=== PATIENT | male | born 1935 | race African-American/Black ===

== ENCOUNTER 2016-12-09 03:02 | Inpatient (IN) | payer MEDICARE ==
[~2016-12-09] VITALS: Ht 180.3 cm; Wt 95.7 kg
[2016-12-09] MEDS ORDERED: LORAZEPAM 2MG/ML CPJ IV ONE (03:45)
[2016-12-09 03:57] LABS: BASOPHILS % 0.3 % (0.0-2.0); EOSINOPHILS % 0.1 % (0.0-5.0); HEMATOCRIT. 23.9 % (42.0-52.0); HEMOGLOBIN. 8.2 g/dL (14.0-18.0); LYMPHOCYTES % 22.1 % (20.0-50.0); MEAN CORPUSCULAR HEMOGLOBIN 31.3 pg (28.0-32.0); MEAN CORPUSCULAR VOLUME 91.4 fL (80.0-94.0); MONOCYTES % 7.7 % (2.0-8.0); NEUTROPHILS % 69.8 % (40.0-76.0); PLATELET 150 x1000/uL (130-400); RED BLOOD CELL COUNT 2.61 mill/uL (4.7-6.1); RED CELL DISTRIBUTION WIDTH 15.1 % (11.6-14.6)
[2016-12-09] MEDS ORDERED: SODIUM CHLORIDE 0.9% 1,000 ML IV ONE (05:46)
[2016-12-09] MEDS ORDERED: LIDOCAINE HCL 2% JELLY 5ML TOP NR (11:00)
[2016-12-09] MEDS ORDERED: FINA5TAB11 PO (11:11)
[2016-12-09] MEDS ORDERED: BENA20TA3 PO (11:11)
[2016-12-09] MEDS ORDERED: CLONIDINE 0.1MG TABLET PO PRN (11:15)
[2016-12-09] MEDS ORDERED: ONDANSETRON HCL 4MG/2ML VIAL IV PRN (11:15)
[2016-12-09] MEDS ORDERED: ACETAMINOPHEN 325MG TABLET PO PRN (11:15)
[2016-12-09] MEDS ORDERED: ROCEPHIN IVPB XX SCH (11:30)
[2016-12-09] MEDS ORDERED: SODIUM POLYSTYRENE SULFONATE 15 G/60 ML BOT PO NR (11:30)
[2016-12-09] MEDS: BENAZEPRIL 10MG TABLET PO SCH (12:53)
[2016-12-09] MEDS: FINASTERIDE 5MG TABLET PO SCH (12:53)
[2016-12-09] MEDS: CEFTRIAXONE 1 G PREMIX 50 ML IV SCH (17:53)
[2016-12-09 22:13] LABS: PHOSPHORUS 3.8 mg/dL (2.5-4.9)
[2016-12-10 05:54] LABS: CHLORIDE 107 mEq/L (98-107)
[2016-12-10 05:58] LABS: CARBON DIOXIDE 26 mEq/L (21-32)
[2016-12-10 07:12] LABS: BASOPHILS % 0.2 % (0.0-2.0); HEMATOCRIT. 22.3 % (42.0-52.0); HEMOGLOBIN. 7.8 g/dL (14.0-18.0); MEAN CORPUSCULAR HEMOGLOBIN 32.2 pg (28.0-32.0); MEAN CORPUSCULAR VOLUME 92.2 fL (80.0-94.0); MEAN PLATELET VOLUME 9.2 fl (7.4-10.4); MONOCYTES % 8.1 % (2.0-8.0); NEUTROPHILS % 77.7 % (40.0-76.0); PLATELET 125 x1000/uL (130-400); RED BLOOD CELL COUNT 2.42 mill/uL (4.7-6.1); RED CELL DISTRIBUTION WIDTH 15.3 % (11.6-14.6)
[2016-12-10] MEDS: BENAZEPRIL 10MG TABLET PO SCH (09:00)
[2016-12-10] MEDS: FINASTERIDE 5MG TABLET PO SCH (09:56)
[2016-12-10] MEDS: CEFTRIAXONE 1 G PREMIX 50 ML IV SCH (21:46)
[2016-12-11 00:39] LABS: CLARITY URINE CLEAR (CLEAR); COLOR URINE YELLOW (YELLOW); KETONES URINE NEGATIVE (NEGATIVE); LEUKOCYTE ESTERASE URINE 1+ (NEGATIVE); NITRITE URINE NEGATIVE (NEGATIVE); OCCULT BLOOD URINE 3+ (NEGATIVE); PROTEIN URINE NEGATIVE (NEGATIVE); SPECIFIC GRAVITY URINE 1.007 (1.005-1.030); UROBILINOGEN URINE 0.2 E.U./dL (0.2-1.0)
[2016-12-11] MEDS: SODIUM CHLORIDE 0.9% 1,000 ML IV SCH ×3 (02:22→23:11)
[2016-12-11 05:54] LABS: BASOPHILS % 0.4 % (0.0-2.0); EOSINOPHILS % 0.7 % (0.0-5.0); HEMATOCRIT. 27.5 % (42.0-52.0); HEMOGLOBIN. 9.4 g/dL (14.0-18.0); LYMPHOCYTES % 21.6 % (20.0-50.0); MEAN CORPUSCULAR HEMOGLOBIN 30.5 pg (28.0-32.0); MEAN CORPUSCULAR VOLUME 89.8 fL (80.0-94.0); MEAN PLATELET VOLUME 8.6 fl (7.4-10.4); MONOCYTES % 10.3 % (2.0-8.0); PLATELET 115 x1000/uL (130-400); RED BLOOD CELL COUNT 3.07 mill/uL (4.7-6.1); RED CELL DISTRIBUTION WIDTH 16.6 % (11.6-14.6)
[2016-12-11 06:30] LABS: CARBON DIOXIDE 26 mEq/L (21-32); CHLORIDE 111 mEq/L (98-107)
[2016-12-11] MEDS: BENAZEPRIL 10MG TABLET PO SCH (08:49)
[2016-12-11] MEDS: FINASTERIDE 5MG TABLET PO SCH (08:49)
[2016-12-11] MEDS ORDERED: SODIUM POLYSTYRENE SULFONATE 15 G/60 ML BOT PO SCH (12:45)
[2016-12-11] MEDS: CEFTRIAXONE 1 G PREMIX 50 ML IV SCH (13:07)
[2016-12-12 06:45] LABS: BASOPHILS % 0.5 % (0.0-2.0); EOSINOPHILS % 2.5 % (0.0-5.0); HEMATOCRIT. 25.9 % (42.0-52.0); HEMOGLOBIN. 8.6 g/dL (14.0-18.0); LYMPHOCYTES % 24.2 % (20.0-50.0); MEAN CORPUSCULAR VOLUME 90.7 fL (80.0-94.0); MEAN PLATELET VOLUME 8.7 fl (7.4-10.4); MONOCYTES % 9.6 % (2.0-8.0); NEUTROPHILS % 63.2 % (40.0-76.0); PLATELET 113 x1000/uL (130-400); RED BLOOD CELL COUNT 2.86 mill/uL (4.7-6.1); RED CELL DISTRIBUTION WIDTH 16.3 % (11.6-14.6)
[2016-12-12 07:02] LABS: CARBON DIOXIDE 25 mEq/L (21-32); CHLORIDE 113 mEq/L (98-107)
[2016-12-12] MEDS: FINASTERIDE 5MG TABLET PO SCH (08:02)
[2016-12-12] MEDS: BENAZEPRIL 10MG TABLET PO SCH (08:02)
[2016-12-12] MEDS: SODIUM CHLORIDE 0.9% 1,000 ML IV SCH (09:33)
[2016-12-12] MEDS ORDERED: MAGNESIUM 2 G PREMIX 50 ML IV SCH (12:15)
[2016-12-12] MEDS: CEFTRIAXONE 1 G PREMIX 50 ML IV SCH (15:31)
[2016-12-13 06:32] LABS: BASOPHILS % 0.5 % (0.0-2.0); EOSINOPHILS % 2.8 % (0.0-5.0); HEMATOCRIT. 26.6 % (42.0-52.0); LYMPHOCYTES % 27.2 % (20.0-50.0); MEAN CORPUSCULAR HEMOGLOBIN 30.1 pg (28.0-32.0); MEAN CORPUSCULAR VOLUME 88.8 fL (80.0-94.0); MEAN PLATELET VOLUME 8.4 fl (7.4-10.4); MONOCYTES % 9.8 % (2.0-8.0); NEUTROPHILS % 59.7 % (40.0-76.0); PLATELET 124 x1000/uL (130-400); RED CELL DISTRIBUTION WIDTH 16.5 % (11.6-14.6)
[2016-12-13 06:56] LABS: CARBON DIOXIDE 25 mEq/L (21-32); CHLORIDE 112 mEq/L (98-107)
[2016-12-13] MEDS ORDERED: DEXAMETHASONE 4MG/ML 1ML VIAL ONE (08:01)
[2016-12-13] MEDS ORDERED: PROPOFOL 200MG/20ML VIAL IV ONE (08:01)
[2016-12-13] MEDS ORDERED: CEFAZOLIN SODIUM 1000MG/VIAL ONE (08:02)
[2016-12-13] MEDS ORDERED: ONDANSETRON HCL 4MG/2ML VIAL IV PRN ×2 (08:15→08:30)
[2016-12-13] MEDS ORDERED: HYDROMORPHONE HCL/PF 2MG/ML CPJ IV PRN (08:30)
[2016-12-13] MEDS ORDERED: MEPERIDINE HCL/PF 25MG/ML CPJ IV PRN (08:30)
[2016-12-13] MEDS ORDERED: LABETALOL HCL 20MG/4ML CARPUJECT IV PRN (08:30)
[2016-12-13] MEDS ORDERED: MAGNESIUM 2 G PREMIX 50 ML IV NR (10:00)
[2016-12-13] MEDS: BENAZEPRIL 10MG TABLET PO SCH (10:58)
[2016-12-13] MEDS: HYDROCODONE/ACETAMINOPHEN 5/325MG TABLET PO PRN (10:58)
[2016-12-13] MEDS: FINASTERIDE 5MG TABLET PO SCH (10:58)
[2016-12-13] MEDS: THROAT LOZENGES-BENZOCAINE/MENTH/CETYLPYRD CL LOZENGES MM PRN ×2 (12:32→17:58)
[2016-12-13] MEDS: DEXT 5%/0.45% NACL KCL 20MEQ/L 1,000 ML IV SCH ×2 (13:51→22:02)
[2016-12-13] MEDS: CEFTRIAXONE 1 G PREMIX 50 ML IV SCH (13:51)
[2016-12-14] MEDS: FINASTERIDE 5MG TABLET PO SCH (08:13)
[2016-12-14] MEDS: DEXT 5%/0.45% NACL KCL 20MEQ/L 1,000 ML IV SCH (08:14)
[2016-12-14] MEDS: HYDROCODONE/ACETAMINOPHEN 5/325MG TABLET PO PRN (08:14)
[2016-12-14] MEDS: THROAT LOZENGES-BENZOCAINE/MENTH/CETYLPYRD CL LOZENGES MM PRN (08:15)
[2016-12-14] MEDS: BENAZEPRIL 10MG TABLET PO SCH (08:15)
[2016-12-14 11:48] LABS: BASOPHILS % 0.3 % (0.0-2.0); EOSINOPHILS % 0.1 % (0.0-5.0); HEMOGLOBIN. 9.2 g/dL (14.0-18.0); LYMPHOCYTES % 15.9 % (20.0-50.0); MEAN CORPUSCULAR HEMOGLOBIN 30.1 pg (28.0-32.0); MEAN CORPUSCULAR VOLUME 88.2 fL (80.0-94.0); MEAN PLATELET VOLUME 8.1 fl (7.4-10.4); MONOCYTES % 9.2 % (2.0-8.0); NEUTROPHILS % 74.5 % (40.0-76.0); PLATELET 129 x1000/uL (130-400); RED BLOOD CELL COUNT 3.06 mill/uL (4.7-6.1); RED CELL DISTRIBUTION WIDTH 15.7 % (11.6-14.6)
[2016-12-14 13:12] VITALS: BP 127/69
== END 2016-12-14 13:30 | disposition home or self-care (01) | DRG 668 ==
LOC: ER 03:02 → 7WST 05:49 → ENRESERV 06:57
PROVIDERS: ADMIT Hospitalist; ATTEND Hospitalist
PROC: 30233N1 Transfusion of Nonautologous Red Blood Cells into Peripheral Vein, Percutaneous Approach (ICD-10-PCS; 2016-12-10)
PROC: 0T5B8ZZ Destruction of Bladder, Via Natural or Artificial Opening Endoscopic (ICD-10-PCS; principal; 2016-12-13 07:30)
DX: N30.41 Irradiation cystitis with hematuria (principal); E43 Unspecified severe protein-calorie malnutrition; N17.9 Acute kidney failure, unspecified; D62 Acute posthemorrhagic anemia; I12.0 Hypertensive chronic kidney disease with stage 5 chronic kidney disease or end stage renal disease; N18.5 Chronic kidney disease, stage 5; N13.9 Obstructive and reflux uropathy, unspecified; R33.9 Retention of urine, unspecified; I10 Essential (primary) hypertension; E87.5 Hyperkalemia; E83.42 Hypomagnesemia; F03.90 Unspecified dementia, unspecified severity, without behavioral disturbance, psychotic disturbance, mood disturbance, and anxiety; N13.8 Other obstructive and reflux uropathy; N28.1 Cyst of kidney, acquired; N32.89 Other specified disorders of bladder; N40.1 Benign prostatic hyperplasia with lower urinary tract symptoms; R31.0 Gross hematuria; Z68.29 Body mass index [BMI] 29.0-29.9, adult; Z92.3 Personal history of irradiation; Z85.46 Personal history of malignant neoplasm of prostate
CPT/HCPCS: 36415; 76770; 80048; 80053; 81001; 81003; 83735; 83970; 84100; 85025; 86850; 86900; 86920; 87493; 93970; 96361; 96374; 99285; J0690; J0696; J1100; J2060; J2704; J3475; J7030; J7050; P9016; A4315

== ENCOUNTER 2021-12-13 12:16 | Inpatient (IN) | payer MEDICARE ==
[~2021-12-13] VITALS: Ht 182.9 cm; Wt 75.6 kg
[~2021-12-13 12:16] MED LIST: BENA-8 PO; FINA5TAB11 PO
[2021-12-13 13:32] LABS: BASOPHILS % 0.5 % (0.0-2.0); EOSINOPHILS % 0.3 % (0.0-5.0); HEMATOCRIT. 40.9 % (42.0-52.0); HEMOGLOBIN. 13.8 g/dL (14.0-18.0); LYMPHOCYTES % 25.6 % (20.0-50.0); MONOCYTES % 7.8 % (2.0-8.0); NEUTROPHILS % 65.8 % (40.0-76.0); PLATELET 93 x1000/uL (130-400); RED BLOOD CELL COUNT 4.45 mill/uL (4.7-6.1); RED CELL DISTRIBUTION WIDTH 13.8 % (11.6-14.6)
[2021-12-13 13:39] LABS: CHLORIDE 103 mEq/L (98-107)
[2021-12-13 13:41] LABS: PROTHROMBIN TIME 11.2 sec (9.6-11.0)
[2021-12-13] MEDS ORDERED: AZITHROMYCIN 500 MG in DEXT 5% WATER 250 ML IV STA (14:03)
[2021-12-13] MEDS ORDERED: CEFTRIAXONE 1 G PREMIX 50 ML IV ONE (14:15)
[2021-12-13] MEDS ORDERED: ASPIRIN 325MG EC TABLET PO ONE (14:15)
[2021-12-13] MEDS ORDERED: SODIUM CHLORIDE 0.9% 500 ML IV ONE (15:30)
[2021-12-13] MEDS ORDERED: DEXAMETHASONE 4MG/ML 1ML VIAL IV ONE (16:15)
[2021-12-14 01:53] VITALS: BP 149/89
[2021-12-14] MEDS ORDERED: SODIUM CHLORIDE 0.9% 1,000 ML IV ONE (02:45)
[2021-12-14 04:00] VITALS: BP 148/66
[2021-12-14] MEDS ORDERED: IPRATROPIUM/ALBUTEROL 0.5-3(2.5)MG/3ML NEB HHN SCH (04:00)
[2021-12-14 08:00] VITALS: BP 122/70
[2021-12-14] MEDS ORDERED: ENOXAPARIN 60MG/0.6ML SYR SUBCUT SCH (09:00)
[2021-12-14] MEDS: ENOXAPARIN 30MG/0.3ML SYR SUBCUT SCH (09:00)
[2021-12-14] MEDS: DEXAMETHASONE 10 MG/ML VIAL IV SCH (09:24)
[2021-12-14] MEDS: AMLODIPINE 10MG TABLET PO SCH (09:25)
[2021-12-14] MEDS: FINASTERIDE 5MG TABLET PO SCH (09:25)
[2021-12-14] MEDS: BENAZEPRIL 10MG TABLET PO SCH (09:26)
[2021-12-14 11:30] LABS: BG BASE EXCESS -4.5 mmol/L (-2.0-2.0); BG CARBOXYHEMOGLOBIN 0.3 % (0.5-1.5); BG DEOXYHEMOGLOBIN 4.6 % (0.0-5.0); BG HCO3 ACT 21.9 mmol/L (22.0-26.0); BG METHEMOGLOBIN 0.3 % (0.0-1.5); BG OXYGEN SATURATION 95.4 % (92.0-98.5); BG OXYHEMOGLOBIN 94.8 % (94.0-97.0); BG PCO2 45.4 mmHg (35.0-45.0); BG PH 7.301 (7.350-7.450); BG PO2 83.4 mmHg (75.0-100.0); BG SAMPLE SITE RIGHT BRACHIAL; BG TOTAL HEMOGLOBIN 13.6 g/dL (12.0-18.0); BG VENT MODE NASAL CANNULA
[2021-12-14 12:00] VITALS: BP 117/70
[2021-12-14] MEDS: AZITHROMYCIN 500 MG in DEXT 5% WATER 250 ML IV SCH (13:12)
[2021-12-14] MEDS: SODIUM CHLORIDE 0.9% 1,000 ML IV SCH (13:59)
[2021-12-14] MEDS: CEFTRIAXONE 1,000 MG in DEXTROSE 5% WATER 50 ML IV SCH (13:59)
[2021-12-14 16:00] VITALS: BP 117/64
[2021-12-14 18:54] LABS: CLARITY URINE TURBID (CLEAR); COLOR URINE ORANGE (YELLOW); KETONES URINE NEGATIVE (NEGATIVE); LEUKOCYTE ESTERASE URINE 1+ (NEGATIVE); NITRITE URINE NEGATIVE (NEGATIVE); OCCULT BLOOD URINE 3+ (NEGATIVE); PROTEIN URINE 2+ (NEGATIVE); SPECIFIC GRAVITY URINE 1.014 (1.005-1.030)
[2021-12-14 20:00] VITALS: BP 142/83
[2021-12-15] VITALS: BP 144/82
[2021-12-15 04:00] VITALS: BP 140/76
[2021-12-15 07:16] LABS: HEMATOCRIT. 37.8 % (42.0-52.0); HEMOGLOBIN. 13.2 g/dL (14.0-18.0); MEAN CORPUSCULAR HEMOGLOBIN 31.5 pg (28.0-32.0); MEAN CORPUSCULAR VOLUME 89.9 fL (80.0-94.0); MEAN PLATELET VOLUME 10.3 fl (7.4-10.4); PLATELET 83 x1000/uL (130-400); RED BLOOD CELL COUNT 4.21 mill/uL (4.7-6.1); RED CELL DISTRIBUTION WIDTH 14.4 % (11.6-14.6)
[2021-12-15 08:00] VITALS: BP 140/79
[2021-12-15] MEDS: AMLODIPINE 10MG TABLET PO SCH (08:48)
[2021-12-15] MEDS: DEXAMETHASONE 10 MG/ML VIAL IV SCH (08:48)
[2021-12-15] MEDS: BENAZEPRIL 10MG TABLET PO SCH (08:49)
[2021-12-15] MEDS: FINASTERIDE 5MG TABLET PO SCH (08:49)
[2021-12-15] MEDS: ENOXAPARIN 30MG/0.3ML SYR SUBCUT SCH (08:51)
[2021-12-15] MEDS: SODIUM CHLORIDE 0.9% 1,000 ML IV SCH ×2 (09:06→19:26)
[2021-12-15 12:00] VITALS: BP 139/78
[2021-12-15 13:44] LABS: PLATELET ESTIMATE DECREASED
[2021-12-15] MEDS: AZITHROMYCIN 500 MG in DEXT 5% WATER 250 ML IV SCH (14:32)
[2021-12-15] MEDS: CEFTRIAXONE 1,000 MG in DEXTROSE 5% WATER 50 ML IV SCH (14:32)
[2021-12-15 16:00] VITALS: BP 138/69
[2021-12-15 20:00] VITALS: BP 136/79
[2021-12-16] VITALS: BP 145/82
[2021-12-16 04:00] VITALS: BP 116/79
[2021-12-16 08:00] VITALS: BP 121/73
[2021-12-16] MEDS: BENAZEPRIL 10MG TABLET PO SCH (09:55)
[2021-12-16] MEDS: DEXAMETHASONE 10 MG/ML VIAL IV SCH (09:55)
[2021-12-16] MEDS: FINASTERIDE 5MG TABLET PO SCH (09:56)
[2021-12-16] MEDS: AMLODIPINE 10MG TABLET PO SCH (09:56)
[2021-12-16 12:00] VITALS: BP 131/74
[2021-12-16] MEDS ORDERED: SODIUM POLYSTYRENE SULFONATE 15 G/60 ML BOT PO NR (12:45)
[2021-12-16] MEDS: AZITHROMYCIN 500 MG in DEXT 5% WATER 250 ML IV SCH (13:26)
[2021-12-16] MEDS: AZITHROMYCIN 500 MG TABLET PO SCH (13:28)
[2021-12-16] MEDS: CEFTRIAXONE 1,000 MG in DEXTROSE 5% WATER 50 ML IV SCH (14:22)
[2021-12-16 16:00] VITALS: BP 138/69
[2021-12-16 20:00] VITALS: BP 142/90
[2021-12-16] MEDS: GUAIFENESIN 600MG ER TABLET PO SCH (21:00)
[2021-12-17] VITALS: BP 150/84
[2021-12-17] MEDS: SODIUM CHLORIDE 0.9% 1,000 ML IV SCH (02:00)
[2021-12-17 04:00] VITALS: BP 141/78
[2021-12-17 07:39] LABS: HEMOGLOBIN. 13.2 g/dL (14.0-18.0); MEAN CORPUSCULAR HEMOGLOBIN 31.1 pg (28.0-32.0); MEAN CORPUSCULAR VOLUME 89.5 fL (80.0-94.0); MEAN PLATELET VOLUME 9.6 fl (7.4-10.4); PLATELET 104 x1000/uL (130-400); RED BLOOD CELL COUNT 4.25 mill/uL (4.7-6.1); RED CELL DISTRIBUTION WIDTH 13.9 % (11.6-14.6)
[2021-12-17 08:37] LABS: PHOSPHORUS 3.1 mg/dL (2.5-4.9)
[2021-12-17] MEDS: GUAIFENESIN 600MG ER TABLET PO SCH ×2 (10:03→23:18)
[2021-12-17] MEDS: AMLODIPINE 10MG TABLET PO SCH (10:03)
[2021-12-17] MEDS: FINASTERIDE 5MG TABLET PO SCH (10:03)
[2021-12-17] MEDS: DEXAMETHASONE 10 MG/ML VIAL IV SCH (10:04)
[2021-12-17] MEDS: AZITHROMYCIN 500 MG TABLET PO SCH (10:04)
[2021-12-17 12:00] VITALS: BP_SYST 119; BP_SYST 149; BP_DIAS 20; BP_DIAS 64
[2021-12-17 14:22] LABS: PLATELET ESTIMATE SLIGHTLY DECREASED
[2021-12-17 16:00] VITALS: BP 119/64
[2021-12-17] MEDS: CEFTRIAXONE 1,000 MG in DEXTROSE 5% WATER 50 ML IV SCH (17:05)
[2021-12-17 20:00] VITALS: BP 145/74
[2021-12-18] VITALS: BP 148/82
[2021-12-18 04:00] VITALS: BP 137/72
[2021-12-18 07:25] LABS: HEMATOCRIT. 39.2 % (42.0-52.0); HEMOGLOBIN. 13.4 g/dL (14.0-18.0); MEAN CORPUSCULAR HEMOGLOBIN 31.1 pg (28.0-32.0); MEAN CORPUSCULAR VOLUME 90.7 fL (80.0-94.0); MEAN PLATELET VOLUME 10.4 fl (7.4-10.4); PLATELET 140 x1000/uL (130-400); RED BLOOD CELL COUNT 4.32 mill/uL (4.7-6.1)
[2021-12-18 07:46] LABS: PHOSPHORUS 3.1 mg/dL (2.5-4.9)
[2021-12-18 08:00] VITALS: BP 148/80
[2021-12-18] MEDS: GUAIFENESIN 600MG ER TABLET PO SCH ×2 (10:03→23:43)
[2021-12-18] MEDS: ENOXAPARIN 30MG/0.3ML SYR SUBCUT SCH (10:03)
[2021-12-18] MEDS: AZITHROMYCIN 500 MG TABLET PO SCH (10:03)
[2021-12-18] MEDS: FINASTERIDE 5MG TABLET PO SCH (10:03)
[2021-12-18] MEDS: AMLODIPINE 10MG TABLET PO SCH (10:05)
[2021-12-18] MEDS: DEXAMETHASONE 10 MG/ML VIAL IV SCH (10:06)
[2021-12-18 12:00] VITALS: BP 131/75
[2021-12-18 13:36] LABS: PLATELET ESTIMATE NORMAL
[2021-12-18] MEDS: CEFTRIAXONE 1,000 MG in DEXTROSE 5% WATER 50 ML IV SCH (15:33)
[2021-12-18 16:00] VITALS: BP 135/67
[2021-12-18 17:18] LABS: BG BASE EXCESS -3.1 mmol/L (-2.0-2.0); BG CARBOXYHEMOGLOBIN 0.1 % (0.5-1.5); BG DEOXYHEMOGLOBIN 12.9 % (0.0-5.0); BG FRACTION INSPIRED OXYGEN 21; BG HCO3 ACT 21.5 mmol/L (22.0-26.0); BG METHEMOGLOBIN 0.3 % (0.0-1.5); BG OXYHEMOGLOBIN 86.7 % (94.0-97.0); BG PH 7.382 (7.350-7.450); BG PO2 55.2 mmHg (75.0-100.0); BG SAMPLE SITE RIGHT RADIAL; BG TOTAL HEMOGLOBIN 13.5 g/dL (12.0-18.0); BG VENT MODE ROOM AIR
[2021-12-18 20:00] VITALS: BP 140/74
[2021-12-19] VITALS: BP 143/81
[2021-12-19 04:00] VITALS: BP 140/80
[2021-12-19 06:29] LABS: HEMATOCRIT. 38.4 % (42.0-52.0); HEMOGLOBIN. 13.2 g/dL (14.0-18.0); MEAN CORPUSCULAR HEMOGLOBIN 31.3 pg (28.0-32.0); MEAN CORPUSCULAR VOLUME 91.1 fL (80.0-94.0); MEAN PLATELET VOLUME 9.6 fl (7.4-10.4); PLATELET 152 x1000/uL (130-400); RED BLOOD CELL COUNT 4.21 mill/uL (4.7-6.1); RED CELL DISTRIBUTION WIDTH 14.1 % (11.6-14.6)
[2021-12-19 06:41] LABS: PHOSPHORUS 3.1 mg/dL (2.5-4.9)
[2021-12-19 08:00] VITALS: BP 133/84
[2021-12-19 08:26] LABS: PLATELET ESTIMATE NORMAL
[2021-12-19] MEDS: GUAIFENESIN 600MG ER TABLET PO SCH ×2 (08:48→22:07)
[2021-12-19] MEDS: FINASTERIDE 5MG TABLET PO SCH (08:48)
[2021-12-19] MEDS: ENOXAPARIN 30MG/0.3ML SYR SUBCUT SCH (08:49)
[2021-12-19] MEDS: DEXAMETHASONE 10 MG/ML VIAL IV SCH (08:49)
[2021-12-19] MEDS: AMLODIPINE 10MG TABLET PO SCH (08:49)
[2021-12-19] MEDS: ALBUTEROL 6.7GM HFA INHALER ORI PRN (08:50)
[2021-12-19] MEDS ORDERED: SODIUM POLYSTYRENE SULFONATE 15 G/60 ML BOT PO SCH (10:00)
[2021-12-19 12:00] VITALS: BP 114/93
[2021-12-19 16:00] VITALS: BP 121/77
[2021-12-19 20:00] VITALS: BP 152/84
[2021-12-20 00:05] VITALS: BP 138/76
[2021-12-20 04:00] VITALS: BP 141/77
[2021-12-20 07:18] LABS: HEMATOCRIT. 38.5 % (42.0-52.0); HEMOGLOBIN. 12.8 g/dL (14.0-18.0); MEAN CORPUSCULAR VOLUME 93.1 fL (80.0-94.0); MEAN PLATELET VOLUME 9.7 fl (7.4-10.4); PLATELET 161 x1000/uL (130-400); RED BLOOD CELL COUNT 4.14 mill/uL (4.7-6.1); RED CELL DISTRIBUTION WIDTH 14.1 % (11.6-14.6)
[2021-12-20 07:41] LABS: PHOSPHORUS 4.3 mg/dL (2.5-4.9)
[2021-12-20 08:00] VITALS: BP 138/83
[2021-12-20] MEDS: GUAIFENESIN 600MG ER TABLET PO SCH ×2 (08:39→21:42)
[2021-12-20] MEDS: DEXAMETHASONE 10 MG/ML VIAL IV SCH (08:40)
[2021-12-20] MEDS: AMLODIPINE 10MG TABLET PO SCH (08:40)
[2021-12-20] MEDS: FINASTERIDE 5MG TABLET PO SCH (08:40)
[2021-12-20] MEDS: ENOXAPARIN 30MG/0.3ML SYR SUBCUT SCH (08:41)
[2021-12-20 12:00] VITALS: BP 150/87
[2021-12-20 14:55] LABS: PLATELET ESTIMATE NORMAL
[2021-12-20 16:00] VITALS: BP 150/87
[2021-12-20 20:00] VITALS: BP 150/87
[2021-12-21] VITALS: BP 144/60
[2021-12-21 04:00] VITALS: BP 124/77
[2021-12-21 07:00] LABS: HEMATOCRIT. 44.1 % (42.0-52.0); HEMOGLOBIN. 14.3 g/dL (14.0-18.0); MEAN CORPUSCULAR VOLUME 95.6 fL (80.0-94.0); MEAN PLATELET VOLUME 9.7 fl (7.4-10.4); PLATELET 149 x1000/uL (130-400); RED BLOOD CELL COUNT 4.61 mill/uL (4.7-6.1); RED CELL DISTRIBUTION WIDTH 14.6 % (11.6-14.6)
[2021-12-21 07:49] LABS: PHOSPHORUS 3.8 mg/dL (2.5-4.9)
[2021-12-21 08:00] VITALS: BP 125/76
[2021-12-21] MEDS: ALBUTEROL 6.7GM HFA INHALER ORI PRN (08:14)
[2021-12-21] MEDS: DEXAMETHASONE 10 MG/ML VIAL IV SCH (08:34)
[2021-12-21] MEDS: AMLODIPINE 10MG TABLET PO SCH (08:39)
[2021-12-21] MEDS: FINASTERIDE 5MG TABLET PO SCH (08:39)
[2021-12-21] MEDS: GUAIFENESIN 600MG ER TABLET PO SCH (08:39)
[2021-12-21] MEDS: ENOXAPARIN 40MG/0.4ML SYR SUBCUT SCH (08:39)
[2021-12-21] MEDS: GUAIFENESIN 200MG/10ML SUGAR FREE UDC PO SCH ×4 (09:19→20:37)
[2021-12-21 12:00] VITALS: BP 128/71
[2021-12-21] MEDS ORDERED: FUROSEMIDE 20MG/2ML VIAL IVP NR (13:45)
[2021-12-21] MEDS ORDERED: SODIUM POLYSTYRENE SULFONATE 15 G/60 ML BOT PO NR (13:45)
[2021-12-21 13:52] LABS: PLATELET ESTIMATE NORMAL
[2021-12-21 16:00] VITALS: BP 118/74
[2021-12-21 20:00] VITALS: BP 127/69
[2021-12-22] VITALS (40 sets, daily range): BP systolic 71–156; BP diastolic 30–103
[2021-12-22] MEDS: GUAIFENESIN 200MG/10ML SUGAR FREE UDC PO SCH ×6 (04:04→21:00)
[2021-12-22] MEDS: ALBUTEROL 6.7GM HFA INHALER ORI PRN (04:37)
[2021-12-22 07:31] LABS: HEMATOCRIT. 44.1 % (42.0-52.0); HEMOGLOBIN. 14.8 g/dL (14.0-18.0); MEAN CORPUSCULAR VOLUME 92.6 fL (80.0-94.0); MEAN PLATELET VOLUME 10.2 fl (7.4-10.4); PLATELET 195 x1000/uL (130-400); RED BLOOD CELL COUNT 4.77 mill/uL (4.7-6.1); RED CELL DISTRIBUTION WIDTH 14.1 % (11.6-14.6)
[2021-12-22 07:42] LABS: PHOSPHORUS 4.3 mg/dL (2.5-4.9)
[2021-12-22] MEDS: DEXAMETHASONE 10 MG/ML VIAL IV SCH (08:22)
[2021-12-22] MEDS: FINASTERIDE 5MG TABLET PO SCH (08:22)
[2021-12-22] MEDS: AMLODIPINE 10MG TABLET PO SCH (08:22)
[2021-12-22] MEDS: ENOXAPARIN 40MG/0.4ML SYR SUBCUT SCH (08:22)
[2021-12-22 12:54] LABS: BG BASE EXCESS -5.8 mmol/L (-2.0-2.0); BG CARBOXYHEMOGLOBIN 0.3 % (0.5-1.5); BG DEOXYHEMOGLOBIN 27.3 % (0.0-5.0); BG HCO3 ACT 17.8 mmol/L (22.0-26.0); BG METHEMOGLOBIN 0.1 % (0.0-1.5); BG OXYGEN SATURATION 72.6 % (92.0-98.5); BG OXYHEMOGLOBIN 72.3 % (94.0-97.0); BG PCO2 30.2 mmHg (35.0-45.0); BG PH 7.389 (7.350-7.450); BG PO2 39.5 mmHg (75.0-100.0); BG SAMPLE SITE RIGHT BRACHIAL; BG TOTAL HEMOGLOBIN 14.6 g/dL (12.0-18.0); BG VENT MODE VAPOTHERM
[2021-12-22 14:39] LABS: PLATELET ESTIMATE NORMAL
[2021-12-22] MEDS ORDERED: PHENYLEPHRINE 100 MG in DEXT 5% WATER 240 ML IV PRN (19:00)
[2021-12-23] VITALS (102 sets, daily range): BP systolic 51–163; BP diastolic 19–115
[2021-12-23] MEDS: GUAIFENESIN 200MG/10ML SUGAR FREE UDC PO SCH ×6 (00:19→21:00)
[2021-12-23] MEDS: NOREPINEPHRINE 32 MG in DEXT 5% WATER 218 ML IV PRN (03:54)
[2021-12-23] MEDS: PHENYLEPHRINE 100 MG in DEXT 5% WATER 240 ML IV PRN ×3 (05:09→21:20)
[2021-12-23 05:13] LABS: HEMATOCRIT. 40.9 % (42.0-52.0); HEMOGLOBIN. 13.5 g/dL (14.0-18.0); MEAN CORPUSCULAR HEMOGLOBIN 30.9 pg (28.0-32.0); MEAN CORPUSCULAR VOLUME 93.3 fL (80.0-94.0); MEAN PLATELET VOLUME 10.6 fl (7.4-10.4); PLATELET 188 x1000/uL (130-400); RED BLOOD CELL COUNT 4.38 mill/uL (4.7-6.1); RED CELL DISTRIBUTION WIDTH 14.3 % (11.6-14.6)
[2021-12-23 05:15] LABS: PHOSPHORUS 7.8 mg/dL (2.5-4.9)
[2021-12-23] MEDS: ENOXAPARIN 30MG/0.3ML SYR SUBCUT SCH (08:29)
[2021-12-23] MEDS: AMLODIPINE 10MG TABLET PO SCH (08:30)
[2021-12-23] MEDS: FINASTERIDE 5MG TABLET PO SCH (08:30)
[2021-12-23] MEDS: DEXAMETHASONE 10 MG/ML VIAL IV SCH (08:30)
[2021-12-23] MEDS ORDERED: LIDOCAINE HCL 1% 10 MG/ML 10ML VIAL ONE ×3 (08:33→13:21)
[2021-12-23 08:41] LABS: PLATELET ESTIMATE NORMAL
[2021-12-23 09:45] LABS: BG BASE EXCESS -6.8 mmol/L (-2.0-2.0); BG CARBOXYHEMOGLOBIN 0.3 % (0.5-1.5); BG DEOXYHEMOGLOBIN 2.3 % (0.0-5.0); BG FRACTION INSPIRED OXYGEN 100; BG HCO3 ACT 20.1 mmol/L (22.0-26.0); BG METHEMOGLOBIN 0.5 % (0.0-1.5); BG OXYGEN SATURATION 97.7 % (92.0-98.5); BG OXYHEMOGLOBIN 96.9 % (94.0-97.0); BG PCO2 45.4 mmHg (35.0-45.0); BG PH 7.264 (7.350-7.450); BG PO2 115.9 mmHg (75.0-100.0); BG SAMPLE SITE RIGHT BRACHIAL; BG TOTAL HEMOGLOBIN 14.1 g/dL (12.0-18.0); BG TOTAL RESPIRATORY RATE 25 b/min; BG VENT MODE MASK - BIPAP
[2021-12-23] MEDS ORDERED: VASOPRESSIN 20 UNIT in SODIUM CHLORIDE 0.9% 99 ML IV PRN (12:30)
[2021-12-23] MEDS: MEROPENEM 1,000 MG in SODIUM CHLORIDE 0.9% 100 ML IV SCH ×2 (13:00→21:24)
[2021-12-23 15:07] LABS: BG BASE EXCESS -6.9 mmol/L (-2.0-2.0); BG CARBOXYHEMOGLOBIN 0.1 % (0.5-1.5); BG DEOXYHEMOGLOBIN 3.6 % (0.0-5.0); BG FRACTION INSPIRED OXYGEN 100; BG HCO3 ACT 19.8 mmol/L (22.0-26.0); BG METHEMOGLOBIN 0.4 % (0.0-1.5); BG OXYGEN SATURATION 96.4 % (92.0-98.5); BG OXYHEMOGLOBIN 95.9 % (94.0-97.0); BG PCO2 43.8 mmHg (35.0-45.0); BG PH 7.273 (7.350-7.450); BG PO2 99.3 mmHg (75.0-100.0); BG SAMPLE SITE RIGHT BRACHIAL; BG TOTAL HEMOGLOBIN 14.2 g/dL (12.0-18.0); BG TOTAL RESPIRATORY RATE 27 b/min; BG VENT MODE MASK - BIPAP
[2021-12-23 17:35] LABS: HEPATITIS B SURFACE ANTIGEN NEGATIVE
[2021-12-23] MEDS ORDERED: VANCOMYCIN 1,750 MG in DEXT 5% WATER 500 ML IV NR (21:00)
[2021-12-24] VITALS (95 sets, daily range): BP systolic 63–201; BP diastolic 28–153
[2021-12-24] MEDS: GUAIFENESIN 200MG/10ML SUGAR FREE UDC PO SCH ×6 (01:00→21:00)
[2021-12-24 05:38] LABS: HEMATOCRIT. 38.8 % (42.0-52.0); HEMOGLOBIN. 12.7 g/dL (14.0-18.0); MEAN CORPUSCULAR VOLUME 94.5 fL (80.0-94.0); MEAN PLATELET VOLUME 10.5 fl (7.4-10.4); PLATELET 147 x1000/uL (130-400); RED BLOOD CELL COUNT 4.11 mill/uL (4.7-6.1); RED CELL DISTRIBUTION WIDTH 14.5 % (11.6-14.6)
[2021-12-24 05:50] LABS: PHOSPHORUS 6.8 mg/dL (2.5-4.9)
[2021-12-24] MEDS: PHENYLEPHRINE 100 MG in DEXT 5% WATER 240 ML IV PRN ×2 (06:07→14:28)
[2021-12-24] MEDS: AMLODIPINE 10MG TABLET PO SCH (08:38)
[2021-12-24] MEDS: FINASTERIDE 5MG TABLET PO SCH (08:39)
[2021-12-24] MEDS: ENOXAPARIN 30MG/0.3ML SYR SUBCUT SCH (08:39)
[2021-12-24] MEDS: DEXAMETHASONE 10 MG/ML VIAL IV SCH (08:39)
[2021-12-24] MEDS: MEROPENEM 1,000 MG in SODIUM CHLORIDE 0.9% 100 ML IV SCH ×2 (08:39→21:24)
[2021-12-24 08:45] LABS: BG BASE EXCESS -6.7 mmol/L (-2.0-2.0); BG CARBOXYHEMOGLOBIN 0.3 % (0.5-1.5); BG DEOXYHEMOGLOBIN 6.6 % (0.0-5.0); BG FRACTION INSPIRED OXYGEN 80; BG HCO3 ACT 18.4 mmol/L (22.0-26.0); BG METHEMOGLOBIN 0.1 % (0.0-1.5); BG OXYGEN SATURATION 93.4 % (92.0-98.5); BG PCO2 35.4 mmHg (35.0-45.0); BG PH 7.333 (7.350-7.450); BG PO2 72.2 mmHg (75.0-100.0); BG SAMPLE SITE LEFT RADIAL; BG TOTAL HEMOGLOBIN 13.2 g/dL (12.0-18.0); BG VENT MODE MASK - BIPAP
[2021-12-24 13:16] LABS: PLATELET ESTIMATE NORMAL
[2021-12-25] VITALS (103 sets, daily range): BP systolic 51–170; BP diastolic 14–105
[2021-12-25] MEDS: MEROPENEM 1,000 MG in SODIUM CHLORIDE 0.9% 100 ML IV SCH ×3 (00:24→20:20)
[2021-12-25] MEDS: GUAIFENESIN 200MG/10ML SUGAR FREE UDC PO SCH ×6 (01:00→20:20)
[2021-12-25 01:23] LABS: BG BASE EXCESS -2.7 mmol/L (-2.0-2.0); BG CARBOXYHEMOGLOBIN 0.2 % (0.5-1.5); BG DEOXYHEMOGLOBIN 14.5 % (0.0-5.0); BG FRACTION INSPIRED OXYGEN 100; BG HCO3 ACT 22.3 mmol/L (22.0-26.0); BG METHEMOGLOBIN 0.3 % (0.0-1.5); BG OXYGEN SATURATION 85.4 % (92.0-98.5); BG PCO2 39.4 mmHg (35.0-45.0); BG PO2 54.4 mmHg (75.0-100.0); BG SAMPLE SITE RIGHT RADIAL; BG TOTAL HEMOGLOBIN 13.4 g/dL (12.0-18.0); BG TOTAL RESPIRATORY RATE 31 b/min; BG VENT MODE MASK - BIPAP
[2021-12-25] MEDS ORDERED: MIDAZOLAM 100MG/100ML PMX 100 ML IV PRN (01:45)
[2021-12-25] MEDS: FENTANYL 2500MCG/250ML PMX 250 ML IV PRN (02:08)
[2021-12-25] MEDS: NOREPINEPHRINE 32 MG in DEXT 5% WATER 218 ML IV PRN ×2 (03:52→14:01)
[2021-12-25 04:01] LABS: BG BASE EXCESS -2.9 mmol/L (-2.0-2.0); BG CARBOXYHEMOGLOBIN 0.3 % (0.5-1.5); BG DEOXYHEMOGLOBIN 4.5 % (0.0-5.0); BG FRACTION INSPIRED OXYGEN 100; BG HCO3 ACT 22.8 mmol/L (22.0-26.0); BG METHEMOGLOBIN 0.3 % (0.0-1.5); BG OXYGEN SATURATION 95.5 % (92.0-98.5); BG OXYHEMOGLOBIN 94.9 % (94.0-97.0); BG PCO2 43.2 mmHg (35.0-45.0); BG PO2 89.9 mmHg (75.0-100.0); BG SAMPLE SITE LEFT FEMORAL; BG TOTAL HEMOGLOBIN 13.4 g/dL (12.0-18.0); BG VENT MODE VENT - AC
[2021-12-25] MEDS: PHENYLEPHRINE 100 MG in DEXT 5% WATER 240 ML IV PRN ×3 (06:10→23:14)
[2021-12-25 06:55] LABS: PHOSPHORUS 5.2 mg/dL (2.5-4.9)
[2021-12-25] MEDS ORDERED: IPRATROPIUM/ALBUTEROL 0.5-3(2.5)MG/3ML NEB HHN PRN (08:45)
[2021-12-25] MEDS: AMLODIPINE 10MG TABLET PO SCH (09:00)
[2021-12-25] MEDS: ENOXAPARIN 30MG/0.3ML SYR SUBCUT SCH (09:25)
[2021-12-25] MEDS: FINASTERIDE 5MG TABLET PO SCH (09:25)
[2021-12-25] MEDS: DEXAMETHASONE 10 MG/ML VIAL IV SCH (09:25)
[2021-12-25] MEDS: PANTOPRAZOLE SODIUM 40 MG/VIAL IV SCH (09:27)
[2021-12-25 09:36] LABS: HEMATOCRIT. 37.6 % (42.0-52.0); HEMOGLOBIN. 12.6 g/dL (14.0-18.0); MEAN CORPUSCULAR HEMOGLOBIN 30.7 pg (28.0-32.0); MEAN CORPUSCULAR VOLUME 91.8 fL (80.0-94.0); MEAN PLATELET VOLUME 11.6 fl (7.4-10.4); PLATELET 118 x1000/uL (130-400); RED CELL DISTRIBUTION WIDTH 14.3 % (11.6-14.6)
[2021-12-25] MEDS ORDERED: SUCCINYLCHOLINE CHLORIDE 200MG/10ML IV ONE (10:00)
[2021-12-25] MEDS ORDERED: ETOMIDATE 2MG/ML 10ML VIAL IV ONE (10:00)
[2021-12-25 11:25] LABS: BG FRACTION INSPIRED OXYGEN 100; BG HCO3 ACT 15.9 mmol/L (22.0-26.0); BG PCO2 39.3 mmHg (35.0-45.0); BG PH 7.226 (7.350-7.450); BG PO2 55.7 mmHg (75.0-100.0); BG SAMPLE SITE RIGHT BRACHIAL; BG VENT MODE VENT - AC
[2021-12-25] MEDS ORDERED: SODIUM BICARBONATE 8.4% 1 MEQ/ML 50ML SYR IV NR ×2 (11:30→21:00)
[2021-12-25] MEDS: VASOPRESSIN 20 UNIT in SODIUM CHLORIDE 0.9% 99 ML IV PRN (14:02)
[2021-12-25] MEDS: IPRATROPIUM/ALBUTEROL 0.5-3(2.5)MG/3ML NEB HHN SCH ×2 (14:30→20:20)
[2021-12-25] MEDS ORDERED: VANCOMYCIN 1G PREMIX 200 ML IV NR (18:00)
[2021-12-26] VITALS (99 sets, daily range): BP systolic 66–175; BP diastolic 33–138
[2021-12-26] MEDS: GUAIFENESIN 200MG/10ML SUGAR FREE UDC PO SCH ×6 (00:11→20:48)
[2021-12-26] MEDS: IPRATROPIUM/ALBUTEROL 0.5-3(2.5)MG/3ML NEB HHN SCH ×4 (01:24→20:12)
[2021-12-26] MEDS: NOREPINEPHRINE 32 MG in DEXT 5% WATER 218 ML IV PRN ×2 (02:36→15:03)
[2021-12-26 05:26] LABS: HEMATOCRIT. 39.3 % (42.0-52.0); MEAN CORPUSCULAR HEMOGLOBIN 30.3 pg (28.0-32.0); MEAN CORPUSCULAR VOLUME 91.5 fL (80.0-94.0); RED CELL DISTRIBUTION WIDTH 14.3 % (11.6-14.6)
[2021-12-26 05:49] LABS: PHOSPHORUS 7.5 mg/dL (2.5-4.9)
[2021-12-26 07:20] LABS: MEAN PLATELET VOLUME 11.4 fl (7.4-10.4); PLATELET 117 x1000/uL (130-400)
[2021-12-26 08:00] LABS: PLATELET ESTIMATE DECREASED
[2021-12-26] MEDS: PHENYLEPHRINE 100 MG in DEXT 5% WATER 240 ML IV PRN ×3 (08:44→23:08)
[2021-12-26] MEDS: AMLODIPINE 10MG TABLET PO SCH (09:00)
[2021-12-26] MEDS: ENOXAPARIN 30MG/0.3ML SYR SUBCUT SCH (09:18)
[2021-12-26] MEDS: DEXAMETHASONE 10 MG/ML VIAL IV SCH (09:18)
[2021-12-26] MEDS: FINASTERIDE 5MG TABLET PO SCH (09:18)
[2021-12-26] MEDS: PANTOPRAZOLE SODIUM 40 MG/VIAL IV SCH (09:18)
[2021-12-26] MEDS: FUROSEMIDE 100MG/10ML VIAL IVP SCH (09:19)
[2021-12-26 11:21] LABS: BG BASE EXCESS -1.5 mmol/L (-2.0-2.0); BG CARBOXYHEMOGLOBIN 0.4 % (0.5-1.5); BG DEOXYHEMOGLOBIN 3.2 % (0.0-5.0); BG FRACTION INSPIRED OXYGEN 100; BG METHEMOGLOBIN 0.5 % (0.0-1.5); BG OXYGEN SATURATION 96.8 % (92.0-98.5); BG OXYHEMOGLOBIN 95.9 % (94.0-97.0); BG PH 7.326 (7.350-7.450); BG PO2 105.4 mmHg (75.0-100.0); BG SAMPLE SITE RIGHT RADIAL; BG TOTAL HEMOGLOBIN 14.5 g/dL (12.0-18.0); BG VENT MODE VENT - AC
[2021-12-26 15:27] LABS: PLATELET ESTIMATE SLIGHTLY DECREASED
[2021-12-26] MEDS: MEROPENEM 1000MG in NORMAL SALINE 100ML IV SCH (17:30)
[2021-12-27] VITALS (99 sets, daily range): BP systolic 64–157; BP diastolic 34–112
[2021-12-27] MEDS: GUAIFENESIN 200MG/10ML SUGAR FREE UDC PO SCH ×6 (01:30→21:05)
[2021-12-27] MEDS: IPRATROPIUM/ALBUTEROL 0.5-3(2.5)MG/3ML NEB HHN SCH ×4 (02:17→20:25)
[2021-12-27 05:09] LABS: HEMATOCRIT. 37.1 % (42.0-52.0); HEMOGLOBIN. 12.3 g/dL (14.0-18.0); MEAN CORPUSCULAR HEMOGLOBIN 30.6 pg (28.0-32.0); MEAN CORPUSCULAR VOLUME 92.5 fL (80.0-94.0); MEAN PLATELET VOLUME 11.3 fl (7.4-10.4); PLATELET 74 x1000/uL (130-400); RED BLOOD CELL COUNT 4.01 mill/uL (4.7-6.1); RED CELL DISTRIBUTION WIDTH 14.4 % (11.6-14.6)
[2021-12-27 05:53] LABS: PHOSPHORUS 8.2 mg/dL (2.5-4.9)
[2021-12-27] MEDS: PHENYLEPHRINE 100 MG in DEXT 5% WATER 240 ML IV PRN ×3 (06:53→22:58)
[2021-12-27] MEDS: ENOXAPARIN 30MG/0.3ML SYR SUBCUT SCH (07:24)
[2021-12-27] MEDS: FINASTERIDE 5MG TABLET PO SCH (08:07)
[2021-12-27] MEDS: AMLODIPINE 10MG TABLET PO SCH (08:07)
[2021-12-27] MEDS: FUROSEMIDE 100MG/10ML VIAL IVP SCH (08:08)
[2021-12-27] MEDS: PANTOPRAZOLE SODIUM 40 MG/VIAL IV SCH (08:08)
[2021-12-27] MEDS: DEXAMETHASONE 10 MG/ML VIAL IV SCH (08:08)
[2021-12-27 10:10] LABS: NUCLEATED RED BLOOD CELLS 4 /100 WBC; PLATELET ESTIMATE DECREASED
[2021-12-27 10:20] LABS: BG BASE EXCESS -4.9 mmol/L (-2.0-2.0); BG CARBOXYHEMOGLOBIN 0.2 % (0.5-1.5); BG DEOXYHEMOGLOBIN 1.6 % (0.0-5.0); BG FRACTION INSPIRED OXYGEN 100; BG HCO3 ACT 23.1 mmol/L (22.0-26.0); BG METHEMOGLOBIN 0.6 % (0.0-1.5); BG OXYGEN SATURATION 98.4 % (92.0-98.5); BG OXYHEMOGLOBIN 97.6 % (94.0-97.0); BG PCO2 54.7 mmHg (35.0-45.0); BG PH 7.243 (7.350-7.450); BG PO2 141.1 mmHg (75.0-100.0); BG SAMPLE SITE RIGHT RADIAL; BG TOTAL HEMOGLOBIN 13.9 g/dL (12.0-18.0); BG VENT MODE VENT - AC
[2021-12-27] MEDS ORDERED: SODIUM POLYSTYRENE SULFONATE 15 G/60 ML BOT NG NR (11:45)
[2021-12-27] MEDS: MEROPENEM 1000MG in NORMAL SALINE 100ML IV SCH (17:01)
[2021-12-27] MEDS: FENTANYL 2500MCG/250ML PMX 250 ML IV PRN (21:06)
[2021-12-27] MEDS: NOREPINEPHRINE 32 MG in DEXT 5% WATER 218 ML IV PRN (22:58)
[2021-12-28] VITALS (45 sets, daily range): BP systolic 48–221; BP diastolic 21–77
[2021-12-28] MEDS: GUAIFENESIN 200MG/10ML SUGAR FREE UDC PO SCH ×6 (00:26→21:00)
[2021-12-28] MEDS: IPRATROPIUM/ALBUTEROL 0.5-3(2.5)MG/3ML NEB HHN SCH ×4 (00:27→21:18)
[2021-12-28 05:49] LABS: HEMATOCRIT. 42.3 % (42.0-52.0); MEAN CORPUSCULAR HEMOGLOBIN 30.8 pg (28.0-32.0); MEAN CORPUSCULAR VOLUME 92.8 fL (80.0-94.0); MEAN PLATELET VOLUME 11.3 fl (7.4-10.4); RED BLOOD CELL COUNT 4.56 mill/uL (4.7-6.1); RED CELL DISTRIBUTION WIDTH 14.3 % (11.6-14.6)
[2021-12-28 06:18] LABS: PLATELET 49 x1000/uL (130-400)
[2021-12-28] MEDS: PHENYLEPHRINE 100 MG in DEXT 5% WATER 240 ML IV PRN ×3 (06:20→22:08)
[2021-12-28] MEDS: AMLODIPINE 10MG TABLET PO SCH (08:04)
[2021-12-28 08:27] LABS: BG CARBOXYHEMOGLOBIN 0.3 % (0.5-1.5); BG DEOXYHEMOGLOBIN 4.3 % (0.0-5.0); BG FRACTION INSPIRED OXYGEN 100; BG HCO3 ACT 13.6 mmol/L (22.0-26.0); BG METHEMOGLOBIN 0.4 % (0.0-1.5); BG OXYGEN SATURATION 95.7 % (92.0-98.5); BG PCO2 34.2 mmHg (35.0-45.0); BG PH 7.218 (7.350-7.450); BG PO2 94.1 mmHg (75.0-100.0); BG SAMPLE SITE RIGHT RADIAL; BG TOTAL HEMOGLOBIN 13.8 g/dL (12.0-18.0); BG VENT MODE VENT - AC
[2021-12-28] MEDS: DEXAMETHASONE 10 MG/ML VIAL IV SCH (08:45)
[2021-12-28] MEDS: FUROSEMIDE 100MG/10ML VIAL IVP SCH (08:45)
[2021-12-28] MEDS: PANTOPRAZOLE SODIUM 40 MG/VIAL IV SCH (08:45)
[2021-12-28] MEDS: FINASTERIDE 5MG TABLET PO SCH (08:45)
[2021-12-28 09:32] LABS: PHOSPHORUS 8.4 mg/dL (2.5-4.9)
[2021-12-28] MEDS ORDERED: BISACODYL 10MG SUPP PR PRN (09:45)
[2021-12-28 10:00] LABS: NUCLEATED RED BLOOD CELLS 7 /100 WBC; PLATELET ESTIMATE MARKEDLY DECREASED
[2021-12-28] MEDS ORDERED: SODIUM BICARBONATE 8.4% 1 MEQ/ML 50ML SYR IV NR ×2 (10:00→14:54)
[2021-12-28] MEDS ORDERED: SODIUM POLYSTYRENE SULFONATE 15 G/60 ML BOT PO NR (10:00)
[2021-12-28] MEDS ORDERED: NA PHOS,M-B/NA PHOS,DI-BA ENEMA 118ML PR NR (10:00)
[2021-12-28] MEDS: VASOPRESSIN 20 UNIT in SODIUM CHLORIDE 0.9% 99 ML IV PRN ×2 (10:47→19:42)
[2021-12-28 12:12] LABS: FIBRINOGEN 399 mg/dL (200-400); INR 1.9; PROTHROMBIN TIME 19.6 sec (9.6-11.0)
[2021-12-28] MEDS: NOREPINEPHRINE 32 MG in DEXT 5% WATER 218 ML IV PRN ×2 (12:29→23:37)
[2021-12-28 14:03] LABS: D-DIMER > 35.20 mg/L FEU (<0.50)
[2021-12-28] MEDS ORDERED: AMIODARONE HCL 900 MG in DEXT 5% WATER 482 ML IV PRN (14:30)
[2021-12-28 14:37] LABS: BG BASE EXCESS -24.2 mmol/L (-2.0-2.0); BG CARBOXYHEMOGLOBIN 0.3 % (0.5-1.5); BG DEOXYHEMOGLOBIN 22.6 % (0.0-5.0); BG FRACTION INSPIRED OXYGEN 100; BG HCO3 ACT 8.7 mmol/L (22.0-26.0); BG METHEMOGLOBIN 0.5 % (0.0-1.5); BG OXYGEN SATURATION 77.2 % (92.0-98.5); BG OXYHEMOGLOBIN 76.6 % (94.0-97.0); BG PCO2 46.2 mmHg (35.0-45.0); BG PH 6.895 (7.350-7.450); BG PO2 65.4 mmHg (75.0-100.0); BG SAMPLE SITE RIGHT RADIAL; BG TOTAL HEMOGLOBIN 14.2 g/dL (12.0-18.0); BG VENT MODE VENT - AC
[2021-12-28] MEDS ORDERED: SODIUM BICARBONATE 150 MEQ in DEXTROSE 5% WATER 1,000 ML IV SCH (16:00)
[2021-12-28] MEDS: MEROPENEM 1000MG in NORMAL SALINE 100ML IV SCH (17:10)
[2021-12-28] MEDS: DOPAMINE 400MG/250ML PREMIX 250 ML IV PRN ×2 (17:32→22:09)
[2021-12-28] MEDS: EPINEPHRINE 10 MG in SODIUM CHLORIDE 0.9% 240 ML IV PRN ×2 (20:36→23:37)
[2021-12-28] MEDS ORDERED: HYDROCORTISONE SOD SUCCINATE 100 MG/2 ML VIAL IV SCH (22:00)
[2021-12-28] MEDS ORDERED: SODIUM CHLORIDE 0.9% 500 ML IV ONE (23:30)
[2021-12-29] MEDS: IPRATROPIUM/ALBUTEROL 0.5-3(2.5)MG/3ML NEB HHN SCH (00:53)
[2021-12-29] MEDS: GUAIFENESIN 200MG/10ML SUGAR FREE UDC PO SCH (01:00)
[2021-12-29] MEDS: EPINEPHRINE 10 MG in SODIUM CHLORIDE 0.9% 240 ML IV PRN ×2 (01:20→03:10)
[2021-12-29] MEDS: DOPAMINE 400MG/250ML PREMIX 250 ML IV PRN (02:07)
[2021-12-29 04:29] VITALS: BP 37/24
[2021-12-29 07:31] LABS: PHOSPHORUS 17.6 mg/dL (2.5-4.9)
[2021-12-29] MEDS ORDERED: DEXTROSE 50% WATER 50ML SYRINGE IV ONE (08:17)
[2021-12-29] MEDS ORDERED: SODIUM BICARBONATE 8.4% 1 MEQ/ML 50ML SYR IV ONE (08:17)
[2021-12-29] MEDS ORDERED: CALCIUM CHLORIDE 1GM/10ML SYR IV ONE (08:17)
[2021-12-29] MEDS ORDERED: EPINEPHRINE 0.1MG/ML (1:10,000) 10ML SYR ONE (08:17)
== END 2021-12-29 04:45 | DRG 870 ==
LOC: ER 12:56 → 7EST 15:20 → EDBEDREQTM 15:25 → EDBEDREQ 15:25 → ENRESERV 22:19 → MICUNO 12-22 16:34 → MICUSO 12-22 18:00 → MICUNO 12-24 20:00
PROVIDERS: ADMIT Internal Medicine; ATTEND Internal Medicine
PROC: 5A09457 Assistance with Respiratory Ventilation, 24-96 Consecutive Hours, Continuous Positive Airway Pressure (ICD-10-PCS; 2021-12-22)
PROC: 02HV33Z Insertion of Infusion Device into Superior Vena Cava, Percutaneous Approach (ICD-10-PCS; 2021-12-23)
PROC: B548ZZA Ultrasonography of Superior Vena Cava, Guidance (ICD-10-PCS; 2021-12-23)
PROC: 02HV33Z Insertion of Infusion Device into Superior Vena Cava, Percutaneous Approach (ICD-10-PCS; 2021-12-23)
PROC: B548ZZA Ultrasonography of Superior Vena Cava, Guidance (ICD-10-PCS; 2021-12-23)
PROC: 0W9930Z Drainage of Right Pleural Cavity with Drainage Device, Percutaneous Approach (ICD-10-PCS; 2021-12-23)
PROC: 5A1955Z Respiratory Ventilation, Greater than 96 Consecutive Hours (ICD-10-PCS; principal; 2021-12-25)
PROC: 0BH17EZ Insertion of Endotracheal Airway into Trachea, Via Natural or Artificial Opening (ICD-10-PCS; 2021-12-25)
PROC: 5A12012 Performance of Cardiac Output, Single, Manual (ICD-10-PCS; 2021-12-29)
DX: A41.89 Other specified sepsis (principal); B37.1 Pulmonary candidiasis; J12.82 Pneumonia due to coronavirus disease 2019; J96.01 Acute respiratory failure with hypoxia; U07.1 COVID-19; N17.0 Acute kidney failure with tubular necrosis; R65.21 Severe sepsis with septic shock; E87.1 Hypo-osmolality and hyponatremia; J93.9 Pneumothorax, unspecified; D61.818 Other pancytopenia; I48.92 Unspecified atrial flutter; I46.9 Cardiac arrest, cause unspecified; N40.0 Benign prostatic hyperplasia without lower urinary tract symptoms; I12.9 Hypertensive chronic kidney disease with stage 1 through stage 4 chronic kidney disease, or unspecified chronic kidney disease; R74.01 Elevation of levels of liver transaminase levels; N28.1 Cyst of kidney, acquired; N18.30 Chronic kidney disease, stage 3 unspecified; E87.5 Hyperkalemia; Z28.310 Unvaccinated for COVID-19; Z82.49 Family history of ischemic heart disease and other diseases of the circulatory system; Z99.2 Dependence on renal dialysis; Z79.899 Other long term (current) drug therapy
CPT/HCPCS: 31500; 36415; 36573; 36600; 71045; 76770; 76937; 78580; 80048; 80053; 80202; 81003; 82375; 82565; 82805; 82962; 83605; 83735; 83880; 84100; 84145; 84484; 84520; 85025; 85379; 85384; 86140; 86705; 86709; 86803; 87070; 87077; 87186; 87340; 87426; 93005; 93970; 94003; 94640; 94660; 97162; 97166; 97535; 99291; C1725; C1752; C1887; C9113; C9803; J0330; J0456; J0696; J1100; J1265; J1650; J1720; J1940; J2185; J2250; J2370; J3010; J3370; J3490; J7030; J7040; J7050; J7060; J7070